=== PATIENT | female | born 1990 | race African-American/Black ===

== ENCOUNTER 2020-03-01 12:12 | Outpatient (CLI) | payer BC, MEDICAID, SELFPAY ==
--- NOTE | 2020-03-01 | ECHO_ITS ---
Patient Info Name: Stefan Palmer Age: 29 years : 1990 Gender: Female Ht: 64 in Wt: 197 lbs BSA: 2.05 m2 HR: 57 bpm BP: 114 / 82 mmHg Heart Rhythm: Sinus Rhythm Technical Quality: Good Exam Date: 03/01/2020 1:07 PM Exam Location: [facility] Patient Status: Outpatient Admit Date: 03/01/2020 Staff Ordering Physician: Alfonzo, Yaritza FUENTES Anesthesiologist Physician: Ron Huertas RDCS, RT Attending Provider: Alfonzo, Yaritza FUENTES Referring Physician: Alfonzo SPANN; Exam Type: CA echo doppler color flow Study Info Indications - positive chaim sob Complete two-dimensional, color flow and Doppler transthoracic echocardiogram is performed. Summary 1. Left ventricular systolic function is normal, estimated at 65-70%. 2. There is no increased left ventricular wall thickness. 3. The left ventricular diastolic function is normal. 4. Global longitudinal strain is normal at -18 %. 5. There is no aortic valve regurgitation. 6. There is no mitral valve regurgitation. 7. There is mild tricuspid valve regurgitation. 8. No pulmonary hypertension, estimated pulmonary arterial systolic pressure is 26 mmHg. 9. There is no pericardial effusion. Left Ventricle Left ventricular chamber dimension is normal. Left ventricular systolic function is normal, estimated at 65-70%. There is no increased left ventricular wall thickness. The left ventricular diastolic function is normal. Global longitudinal strain is normal at -18 %. Right Ventricle Right ventricular chamber dimension is normal. Right ventricular systolic function is normal. Left Atria Left atrial chamber dimension is normal. Right Atria Right atrial chamber dimension is normal. Aortic Valve The aortic valve is trileaflet. There is no aortic valve stenosis. There is no aortic valve regurgitation. Pulmonic Valve The pulmonic valve is not well visualized. There is trace pulmonic regurgitation. Mitral Valve The mitral valve has normal leaflets. There is no mitral valve regurgitation. Tricuspid Valve The tricuspid valve leaflets are normal. There is mild tricuspid valve regurgitation. No pulmonary hypertension, estimated pulmonary arterial systolic pressure is 26 mmHg. Pericardium/Pleural The pericardium appears normal. There is no pericardial effusion. Inferior Vena Cava Normal inferior vena cava with >50% collapse upon inspiration consistent with normal right atrial pressure, 5 mmHg. Aorta The aortic root size at the sinus of Valsalva is normal. Left Ventricular Outflow Tract Name Value Normal LVOT 2D LVOT Diameter 2.0 cm LVOT Doppler LVOT Peak Gradient 4 mmHg LVOT Mean Gradient 2 mmHg LVOT VTI 19 cm LVOT VTI/AV VTI Ratio 0.9 LVOT Stroke Volume 58 ml LVOT CO 3.5 l/min LVOT CI 1.7 l/min/m2 Mitral Valve Name
--- NOTE | ~2020-03-01 | XR_ITS ---
XR pelvis 1-2V 03/01/2020 12:50 INDICATION: Polyarthralgias. ROSA positive. PROCEDURE: AP view of the pelvis COMPARISON: 04/25/2013 FINDINGS: Fracture, dislocation or subluxation is not identified. Pelvic rings are intact. Sacral for amen are symmetric. No erosive changes. The soft tissues appear within normal limits. No foreign bod ies are identified. IMPRESSION: 1: No significant bone or joint abnormality. Reviewed, dictated and finalized at location A.
--- NOTE | ~2020-03-01 | XR_ITS ---
EXAMINATION: XR chest 2V 03/01/2020 12:50 INDICATION: Polyarthralgias. Positive AMA. Chronic chest pain. PROCEDURE: 2 view chest COMPARISON: 03/14/2016 FINDINGS: The lungs are clear. The cardiomediastinal silhouette is within normal limits. There are no pleural effusions. There is no pneumothorax suspected. IMPRESSION: 1: NO ACUTE CARDIOPULMONARY DISEASE. Reviewed, dictated and finalized at location A.
--- NOTE | ~2020-03-01 | XR_ITS ---
XR hand LT 2V, XR hand RT 2V 03/01/2020 12:51 (accession [id number]), 03/01/2020 12:50 (accession [id number]) Indication: Joint pain. Positive ROSA Procedure: 2 views each hand Comparison: 03/25/2011 and 01/06/2017 Findings: No fracture, subluxation or dislocation. No erosive changes. No focal soft tissue abnormali ty. No radiopaque foreign bodies. Impression: 1: No significant bone or joint abnormality. Reviewed, dictated and finalized at location A. Impression: 1: No significant bone or joint abnormality. Impression: 1: No significant bone or joint abnormality.
== END 2020-03-01 12:13 | disposition home or self-care (01) ==
LOC: ANHCARD 12:24
PROVIDERS: Visit Provider Physician Assistant
DX: R76.8 Other specified abnormal immunological findings in serum (principal); R06.02 Shortness of breath; M25.50 Pain in unspecified joint
CPT/HCPCS: 71046; 72170; 73120; 93306

== ENCOUNTER 2020-03-06 16:37 | Emergency (ER) | payer BC, MEDICAID, SELFPAY ==
--- NOTE | 2020-03-06 16:44 | ED.URI ---
HPI - URI/Sore Throat General Chief Complaint: Upper Respiratory Infection Stated Complaint: bronchitis Time Seen by Provider: 03/06/20 16:55 Source: patient and RN notes reviewed Mode of arrival: ambulatory Limitations: no limitations History of Present Illness HPI Narrative: 29-year-old female presents with multiple complaints. Reports right lower dental pain after a cracked tooth. Reports a foul taste in her mouth and jaw swelling. She also reports several day history of cough, burning in her chest with deep breathing and coughing. She denies fever. Reports sore throat. Denies nasal congestion, rhinorrhea. Reports taking Mucinex, ibuprofen for her cough. MD elicited complaint: cough and other (Dental pain) Related Data Home Medications Medication Instructions Recorded Confirmed levothyroxine [Synthroid] 03/06/20 liothyronine [Cytomel] mcg 03/06/20 lorazepam [Ativan] 03/06/20 Allergies Allergy/AdvReac Type Severity Reaction Status Date / Time No Known Allergies Allergy Verified 05/27/19 16:54 Review of Systems Review of Systems: Narrative: CONSTITUTIONAL: Denies malaise, chills, sweats, or fever. EYES: Denies visual changes, redness, or discharge. ENT: Denies rhinorrhea, congestion, sinus pain, otalgia. Reports occasional sore throat. Reports right lower dental pain, jaw swelling, foul taste in her mouth CARDIOVASCULAR: Denies chest pain, palpitations, or edema. RESPIRATORY: Reports cough. Denies dyspnea. GASTROINTESTINAL: Denies abdominal pain, nausea, vomiting, diarrhea SKIN: Denies rash or itching. MUSCULOSKELETAL: Denies myalgia. NEUROLOGIC: Denies headache. All systems reviewed & are unremarkable except as noted in HPI and below PMFSH Comments At time of signature, agree with nursing past medical, surgical, social and family history. There is no relevant family history pertinent to the presenting complaint Exam Narrative: Exam Narrative: GENERAL: Well-appearing, well-nourished, and in no acute distress. HEAD: Normocephalic EYES: PERRLA, conjunctivae clear ENT: Nares clear, turbinates erythematous, clear discharge. Mucous membranes moist. TM pearly krishna with dull light reflex bilaterally; no tragal tenderness. Oropharynx not erythematous without lesions. Tonsils not enlarged and without exudate, no drooling, no hoarseness, no trismus, uvula midline. Broken tooth #18, no periapical abscess NECK: Supple. No lymphadenopathy CHEST: Clear to auscultation, breath sounds equal. No wheezing, rhonchi, rales, or stridor. No respiratory distress, speaks in full sentences. HEART: Regular rate and rhythm. No murmur heard. SKIN: Warm, dry, no rash. NEURO: Alert and oriented x3. PSYCH: Normal mood and affect Course Course Emergency Course: Patient is aware of diagnosis, understands and agrees to treatment plan. Anticipatory guidance given. Patient agrees to follow-up as directed and is aware of reasons to seek care at the emergency department. Portions of this record may have been created with voice recognition software Vital Signs Vital signs: Vital Signs Pulse Rate 65 03/06/20 16:48 Respiratory Rate 16 03/06/20 16:48 Blood Pressure 125/88 03/06/20 16:48 Pulse Oximetry 100 03/06/20 16:48 Pulse Rate 65 03/06/20 16:48 Respiratory Rate 16 03/06/20 16:48 Blood Pressure 125/88 03/06/20 16:48 Pulse Oximetry 100 03/06/20 16:48 Reviewed. Patient has been instructed to follow up with her primary care provider within the next week regarding her elevated blood pressure today. MDM - URI/Sore Throat MDM Narrative Medical decision making narrative: Differential diagnosis considered: Strep pharyngitis, allergic rhinitis, upper respiratory tract infection, sinusitis, rhinosinusitis, nasopharyngitis. viral pharyngitis, otitis media, otitis externa, pneumonia, bronchitis, viral cough syndrome, viral syndrome, and influenza. Exam findings show no acute concerns or changes; patient is non-toxic
[2020-03-06 16:48] VITALS: BP 125/88; PULSE 65; RESP 16; O2SAT 100
== END 2020-03-06 17:25 | disposition home or self-care (01) ==
PROVIDERS: Emergency Provider Nurse Practitioner
DX: K08.89 Other specified disorders of teeth and supporting structures (principal); R05 Cough
CPT/HCPCS: 99213; G0463

== ENCOUNTER 2020-12-14 08:02 | Outpatient (CLI) | payer OTHER, SELFPAY ==
--- NOTE | ~2020-12-14 | XR_ITS ---
XR_CERV2-3V_CR DATE: 12/14/2020 08:33 INDICATION: Neck pain TECHNIQUE: AP, open-mouth, lateral views COMPARISON: None FINDINGS: There is straightening of the cervical spine. There is mild dextroscoliosis of the cervical and upper thoracic spine. C1 and C2 are normally aligned and the odontoid process appears intact. No fracture or dislocation or locked facet or prevertebral soft tissue swelling. Surgical clips are noted in the cervical area. IMPRESSION: Straightening and dextroscoliosis Reviewed, dictated and finalized at Location A. Reviewed, dictated and finalized at location B. 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
--- NOTE | ~2020-12-14 | US_ITS ---
US right upper quadrant INDICATION: Right upper quadrant pain PROCEDURE: Realtime right upper abdominal ultrasound. COMPARISON: No prior studies for comparison. FINDINGS: The pancreas is normal without focal mass or pancreatic ductal dilation. Liver echotexture is normal without focal mass or intrahepatic biliary dilatation. There is normal directional flow i n the portal vein. The gallbladder is normal without stones, gallbladder wall thickening or pericholecystic fluid. Comm on bile duct measures 3 mm. No sonographic Huertas's sign. IMPRESSION: 1: Normal limited abdominal ultrasound. Reviewed, dictated and finalized at location A. 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
--- NOTE | ~2020-12-14 | XR_ITS ---
XR foot RT min 3V DATE: 12/14/2020 08:33 INDICATION: Right foot pain TECHNIQUE: 4 views COMPARISON: 01/06/2017 right foot FINDINGS: No fracture or dislocation, periosteal reaction or bone destruction. Joint spaces are prese rved. No erosive changes. IMPRESSION: Negative Reviewed, dictated and finalized at location B. ENGINEER IMPRESSION: Negative
== END 2020-12-14 08:03 | disposition home or self-care (01) ==
LOC: ANHIMG 08:05
PROVIDERS: Visit Provider Physician Assistant
DX: R76.8 Other specified abnormal immunological findings in serum (principal); M25.571 Pain in right ankle and joints of right foot; M25.572 Pain in left ankle and joints of left foot; M53.82 Other specified dorsopathies, cervical region; M41.82 Other forms of scoliosis, cervical region
CPT/HCPCS: 72040; 73630; 76705

== ENCOUNTER 2021-09-01 15:59 | Emergency (ER) | payer OTHER, SELFPAY ==
[2021-09-01 16:21] VITALS: BP 130/75; PULSE 75; RESP 14; TEMP 36.8; O2SAT 100
[2021-09-01 16:48] LABS: Basophils Percent Auto 0.3 % (0.2-1.2); Eosinophils Absolute Auto 0.1 K/mm3 (0-0.3); Eosinophils Percent Auto 1.1 % (0-4.4); Hematocrit 40.6 % (37.0-47.0); Hemoglobin 13.8 g/dL (12.0-15.0); Immature Granulocyte Absolute 0.01 K/mm3 (0.00-0.031); Immature Granulocyte Percent A 0.2 % (0-0.5); Lymphocytes Absolute Auto 2.76 K/mm3 (0.9-3.2); Lymphocytes Percent Auto 41.6 % (18.3-44.2); Mean Corpuscular Hemoglobin 29.2 pg (26-34); Mean Platelet Volume 9.8 fl (7.4-10.4); Monocytes Absolute Auto 0.6 K/mm3 (0.1-0.6); Neutrophils Absolute Auto 3.2 K/mm3 (1.3-6.7); Neutrophils Percent Auto 47.8 % (45.5-73.1); Platelet Count Result 353 k/mm3 (150-375); Red Blood Count 4.72 M/mm3 (4.2-5.4); Red Cell Distribution Width 13.2 % (11.5-14.5); White Blood Count 6.6 K/mm3 (4.5-10.0)
[2021-09-01 17:04] LABS: Add Urine Microscopic? YES; Appearance Urine Cloudy (Clear); Bilirubin Urine Negative (Negative); Blood Urine Negative (Negative); Color Urine Yellow (Yellow); Glucose Urine UA Negative (Negative); Ketones Urine Negative (Negative); Leukocyte Esterase Ur Negative LEU/UL (Negative); Mucus Urine Heavy /lpf; Nitrate Urine Negative (Negative); Protein Urine 1+ mg/dL (Negative); Squamous Epithelial Cell Urine Moderate /hpf (Few); WBC Urine 0-3 /hpf
[2021-09-01 17:30] LABS: Alanine Aminotransferase 23 U/L (4-35); Albumin Level 4.7 g/dL (3.5-5.1); Alkaline Phosphatase 49 U/L (38-126); Anion Gap 13 mmol/L (8-16); Aspartate Amino Transferase 28 U/L (14-36); Bilirubin,Total 0.5 mg/dL (0.2-1.3); Blood Urea Nitrogen 6 mg/dL (7-17); Calcium 8.7 mg/dL (8.4-10.2); Carbon Dioxide 21 mmol/L (22-30); Chloride 106 mmol/L (98-107); Estimated CRCL calculation 111 ml/min; Estimated Glomerular Filt Rate > 60; Glucose 80 mg/dL (65-110); Lipase 132 U/L (23-300); Potassium 4.1 mmol/L (3.4-5.0); Sodium 140 mmol/L (137-145)
--- NOTE | 2021-09-01 20:37 | ED.GENADULT ---
HPI - General Adult General Chief complaint: Abdominal Pain Stated complaint: right side pain/nausea Time Seen by Provider: 09/01/21 20:16 Source: patient and RN notes reviewed History of Present Illness HPI narrative: Patient is a 30 y/o female complaining of right upper abdominal pain since yesterday. She describes her pain as aching and rates it as 4/10. She states that eating makes her pain worse. She took Tylenol and Motrin which did not help. She has some nausea, but no vomiting or diarrhea. Related Data Home Medications Medication Instructions Recorded Confirmed levothyroxine [Synthroid] 03/06/20 liothyronine [Cytomel] mcg 03/06/20 lorazepam [Ativan] 03/06/20 Allergies Allergy/AdvReac Type Severity Reaction Status Date / Time No Known Allergies Allergy Verified 05/27/19 16:54 Review of Systems Constitutional: Constitutional: Denies chills, Denies fever(s), Denies headache(s) and Denies weakness Eyes: Eyes: Denies blurry vision ENT: Denies headache(s) and Denies neck pain Cardiovascular: Cardiovascular: Denies chest pain and Denies dyspnea Respiratory: Respiratory: Denies cough and Denies dyspnea Gastrointestinal: Gastrointestinal: Reports abdominal pain, Denies diarrhea, Reports nausea and Denies vomiting Genitourinary: Genitourinary: Denies hematuria and Denies dysuria Musculoskeletal: Musculoskeletal: Denies back pain and Denies neck pain Neurologic: Denies headache(s) and Denies weakness Exam Const: General: no acute distress and well developed Orientation/consciousness: oriented to person, oriented to place, oriented to time and patient oriented x3 HENMT: Head: normocephalic Ears: external ears normal General nose exam: Normal external nose present Eyes: General: appearance normal, both eyes and all related structures Conjunctivae: conjunctivae normal Neck: Neck: normal visual inspection and full ROM Chest: Chest palpation & inspection: normal inspection of the chest and no tenderness Resp: Effort & Inspection: normal respiratory effort Auscultation: clear to auscultation bilaterally Cardio: Rate: regular rate Rhythm: regular rhythm GI: GI Palp: No abdominal tenderness and Yes Soft to palpation Skin: General skin exam: normal color and turgor normal Neuro: General: oriented to person, oriented to place, oriented to time and patient oriented x3 Cognition (Neuro): normal cognition Extrem: General: normal to inspection, full ROM and no pedal edema Psych: Appearance: grossly normal Mental Status: mental status grossly normal Affect: normal affect Course Reevaluation(s) Reevaluation #1: Patient left before CT is done and evaluation is complete. She is considered to have left AMA. Date: 09/01/21 Vital Signs Vital signs: Vital Signs Temperature 36.8 C 09/01/21 16:21 Pulse Rate 75 09/01/21 16:21 Respiratory Rate 14 09/01/21 16:21 Blood Pressure 130/75 09/01/21 16:21 Pulse Oximetry 100 09/01/21 16:21 Temperature 36.8 C 09/01/21 16:21 Pulse Rate 75 09/01/21 16:21 Respiratory Rate 14 09/01/21 16:21 Blood Pressure 130/75 09/01/21 16:21 Pulse Oximetry 100 09/01/21 16:21 Medical Decision Making Vital Signs Vital Signs: Vital Signs Temperature 36.8 C 09/01/21 16:21 Pulse Rate 75 09/01/21 16:21 Respiratory Rate 14 09/01/21 16:21 Blood Pressure 130/75 09/01/21 16:21 Pulse Oximetry 100 09/01/21 16:21 Temperature 36.8 C 09/01/21 16:21 Pulse Rate 75 09/01/21 16:21 Respiratory Rate 14 09/01/21 16:21 Blood Pressure 130/75 09/01/21 16:21 Pulse Oximetry 100 09/01/21 16:21 Lab Data Result diagrams: 09/01/21 16:42 09/01/21 16:42 Labs: Lab Results 09/01/21 09/01/21 09/01/21 Range/Units 16:42 16:42 16:50 WBC 6.6 (4.5-10.0) K/mm3 RBC 4.72 (4.2-5.4) M/mm3 Hgb 13.8 (12.0-15.0) g/dL Hct 40.6 (37.0-47.0) % MCV 86.0 (80-100) fl MCH 29.2 (2
== END 2021-09-01 21:04 | disposition left against medical advice (07) ==
LOC: ANHED 21:05
PROVIDERS: Family Medicine; Emergency Provider Emergency Medicine
DX: R10.11 Right upper quadrant pain (principal)
CPT/HCPCS: 36415; 80053; 81001; 81025; 83690; 85025; 99283

== ENCOUNTER 2022-11-28 10:03 | Outpatient (CLI) | payer OTHER, SELFPAY ==
--- NOTE | ~2022-11-28 | US_ITS ---
Pelvic ultrasound. Clinical History: Pelvic pain Technique: Realtime transabdominal and transvaginal scanning of the pelvis was performed. Color flow Doppler and Doppler spectral analysis were performed. Findings: The uterus is anteverted. The endometrial stripe has a thickness of 6 mm. No focal mass is identified. The right ovary measures 3.0 x 3.5 x 2.2 cm. No significant right ovarian or adnexal mass is seen. The left ovary measures 3.0 x 2.5 x 2.2 cm. No significant left ovarian or adnexal mass is seen. Vascular flow present in both ovaries on Doppler spectral analysis. Multiple small peripheral follicu lar cysts are present in the right ovary. There is no evidence of free fluid in the cul de sac. Impression: Morphologic findings of the right ovary raise the possibility of polycystic ovarian syndrome. Correla te clinically. Reviewed, dictated and finalized at [facility]. 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 Correlate clinically.
== END 2022-11-28 10:04 | disposition home or self-care (01) ==
PROVIDERS: PCP Obstetrics & Gynecology Gynecology; Visit Provider Advanced Practice Midwife
DX: R10.2 Pelvic and perineal pain (principal); R93.5 Abnormal findings on diagnostic imaging of other abdominal regions, including retroperitoneum
CPT/HCPCS: 76830; 76856

== ENCOUNTER 2023-01-08 11:46 | Outpatient (CLI) | payer OTHER, SELFPAY ==
[2023-01-08 12:18] LABS: Mean Corpuscular Hemoglobin 29.2 pg (26-34); Mean Corpuscular Volume 83.5 fl (80-100); Mean Platelet Volume 9.4 fl (7.4-10.4); Platelet Count Result 452 k/mm3 (150-375); Red Blood Count 4.79 M/mm3 (4.2-5.4); Red Cell Distribution Width 12.3 % (11.5-14.5); White Blood Count 7.2 K/mm3 (4.5-10.0)
[2023-01-08 12:32] LABS: Alanine Aminotransferase 56 U/L (6-35); Albumin Level 4.8 g/dL (3.5-5.1); Alkaline Phosphatase 76 U/L (38-126); Amylase 89 U/L (30-110); Anion Gap 10 mmol/L (8-16); Aspartate Amino Transferase 35 U/L (14-36); Bilirubin,Total 0.6 mg/dL (0.2-1.3); Blood Urea Nitrogen 8 mg/dL (7-17); Calcium 9.3 mg/dL (8.4-10.2); Carbon Dioxide 22 mmol/L (22-30); Chloride 101 mmol/L (98-107); Estimated Glomerular Filt Rate > 60; Glucose 89 mg/dL (65-110); Lipase 104 U/L (23-300); Potassium 3.5 mmol/L (3.4-5.0); Sodium 133 mmol/L (137-145)
== END 2023-01-08 11:47 | disposition home or self-care (01) ==
LOC: ANHLAB 11:47
PROVIDERS: PCP Obstetrics & Gynecology Gynecology; Visit Provider Nurse Practitioner
DX: R10.11 Right upper quadrant pain (principal); G89.29 Other chronic pain; R11.0 Nausea
CPT/HCPCS: 36415; 80053; 82150; 83690; 85027

== ENCOUNTER 2023-05-01 09:01 | Outpatient (CLI) | payer OTHER, SELFPAY ==
--- NOTE | ~2023-05-01 | US_ITS ---
Limited Abdominal Sonogram: Real-time sonographic imaging of the right upper quadrant was performed. Clinical History: Nausea Findings: The liver appears mildly echogenic, with no evidence of mass lesion or bile duct dilatatio n. Main portal vein demonstrates normal direction of flow. The gallbladder is well distended, and ephraim ears normal with no evidence of gallstone or wall thickening. The common bile duct measures 5 mm. Th e visualized pancreas, aorta, and IVC are unremarkable. Impression: Mild fatty infiltration of liver. Reviewed, dictated and finalized at location M. Impression: Mild fatty infiltration of liver.
== END 2023-05-01 09:02 | disposition home or self-care (01) ==
LOC: ANHIMG 09:04
PROVIDERS: PCP Obstetrics & Gynecology Gynecology; Visit Provider Nurse Practitioner
DX: G89.29 Other chronic pain (principal); R10.11 Right upper quadrant pain; R11.0 Nausea; K76.0 Fatty (change of) liver, not elsewhere classified
CPT/HCPCS: 76705

== ENCOUNTER 2023-05-08 07:42 | Day surgery (SDC) | payer OTHER, SELFPAY ==
[2023-05-08 08:00] VITALS: BMI 34.0
[2023-05-08 12:22] VITALS: BP 141/78; PULSE 89; RESP 20; TEMP 36.3; O2SAT 96; BMI 34.2
--- NOTE | 2023-05-08 12:23 | P.HP_ITS ---
History of Present Illness History of Present Illness Consent: Risks, benefits, and alternatives have been discussed and questions answered. Patient agrees to proceed with procedure. Chief complaint: right upper quad pain and nausea Narrative: Stefan Palmer is a 32 year old female Presents for EGD. Patient complains of chronic ongoing right upper quadrant discomfort. She does have occasional nausea. Because of ongoing pain EGD is requested. She notes sometimes pain will intensify after eating. She has gone to the ER and several occasions. No specific findings have been identified. A at 1 time mild elevation of the ALT was identified but this has returned to normal. Patient presents today for follow-up EGD because of ongoing pain. She denies any dysphagia. She has had no weight loss. Gallbladder ultrasound unremarkable. One finding suggested hepatic steatosis. Nothing to account for pain. Review of Systems Review of Systems: Review of systems noncontributory. [facility] Past Medical History Medical History (Updated 01/08/23 @ 13:45 by Loretta Abbott APRN) Chronic RUQ pain Elevated ALT measurement Finger contusion Hepatic steatosis Nausea Obesity Surgical History Surgical History (Updated 01/08/23 @ 11:45 by Loertta Abbott APRN) H/O thyroidectomy Social History Social History Smoking status: Smoker, status unknown Alcohol intake: never Substance use type: does not use Living arrangements: with family Spiritual care concerns: No Meds Home Medications and Allergies Home Medications Medication Instructions Recorded Confirmed Type levothyroxine 150 mcg tablet 150 mcg PO DAILY 03/06/20 05/08/23 History (Synthroid) liothyronine 5 mcg tablet (Cytomel) 5 mcg PO DAILY 03/06/20 05/08/23 History lorazepam 0.5 mg tablet (Ativan) 0.5 mg PO DIRECTED 03/06/20 05/08/23 History calcium carbonate 600 mg calcium 600 mg PO DAILY 01/08/23 05/08/23 History (1,500 mg) tablet (Calcium) cholecalciferol (vitamin D3) 250 250 mcg PO WEEKLY 01/08/23 05/08/23 History mcg (10,000 unit) capsule metformin 500 mg tablet 500 mg PO BID 01/08/23 05/08/23 History ferrous sulfate 325 mg (65 mg 325 mg PO DAILY 05/08/23 05/08/23 History iron) tablet (Iron (ferrous sulfate)) Allergies Allergy/AdvReac Type Severity Reaction Status Date / Time No Known Allergies Allergy Verified 05/08/23 12:21 Exam Narrative: Physical exam reveals patient to be alert. Vital signs stable. HEENT exam is unremarkable. Patient is anicteric. Lungs are clear to auscultation and percussion. Heart is without murmur or extra sounds. Abdomen bowel sounds are present soft nontender with no organomegaly. Assessment and Plan Assessment and plan (1) Chronic RUQ pain: Code(s): R10.11 - Right upper quadrant pain; G89.29 - Other chronic pain Status: Acute Assessment and Plan: Patient has right upper quadrant pain of uncertain etiology. Follow-up EGD request at this time because of ongoing discomfort. Some of the pain appears to intensify after eating. Further recommendations may be given after endoscopy.
[2023-05-08] MEDS: LACTATED RINGERS 1,000 ML 150 ML IV CONT (12:38)
[2023-05-08 14:02] VITALS: BP 111/76; PULSE 75; RESP 18; O2SAT 99
[2023-05-08 14:12] VITALS: BP 115/77; PULSE 61; RESP 20; O2SAT 99
[2023-05-08 14:22] VITALS: BP 121/69; PULSE 61; RESP 20; O2SAT 99
== END 2023-05-08 14:26 | disposition home or self-care (01) ==
PROVIDERS: Referring Provider Obstetrics & Gynecology Gynecology; Visit Provider Internal Medicine Gastroenterology
PROC: 0DJ08ZZ Inspection of Upper Intestinal Tract, Via Natural or Artificial Opening Endoscopic (ICD-10-PCS; CPT 43235; principal; 2023-05-08 13:30)
DX: R10.11 Right upper quadrant pain (principal); R11.0 Nausea; E66.9 Obesity, unspecified; Z68.34 Body mass index [BMI] 34.0-34.9, adult; G89.29 Other chronic pain
CPT/HCPCS: 43239; 87081; J2405; J2704; J3010; J7120

== ENCOUNTER 2023-05-20 07:43 | Outpatient (CLI) | payer OTHER, SELFPAY ==
--- NOTE | ~2023-05-20 | NM_ITS ---
EXAMINATION: NM hepatobiliary wo pharm DATE: 05/20/2023 11:31 INDICATION: Right upper quadrant abdominal pain and nausea COMPARISON: Ultrasound dated 05/01/2023 TECHNIQUE: 4.9 mCi Tc-99m mebrofenin (Choletec) was administered intravenously. Scintigraphic images of the abdomen were obtained for one hour. At the 1 hour time point, the patient drank 8 oz Ensure, and imaging was continued for 60 minutes. Gallbladder ejection fraction was calculated by the technol ogist. FINDINGS: There is normal clearance of radiotracer from the blood pool. There is homogeneous tracer u ptake by the liver. Activity progresses to the bowel and gallbladder. The gallbladder ejection fract ion (GBEF) is 52%. Note that with this technique, normal GBEF >= 33%. IMPRESSION: 1. Normal hepatobiliary scan. Reviewed, dictated and finalized at location A.
== END 2023-05-20 07:44 | disposition home or self-care (01) ==
LOC: ANHIMG 07:47
PROVIDERS: Visit Provider Nurse Practitioner
DX: R10.11 Right upper quadrant pain (principal); G89.29 Other chronic pain; R11.0 Nausea
CPT/HCPCS: 78226; A9537